=== PATIENT | female | born 1995 | race Native Hawaiian/Other Pacific Islander ===

== ENCOUNTER 2018-10-17 22:00 | Emergency (ER) | payer BC ==
[2018-10-17] MEDS ORDERED: SODIUM CHLORIDE 0.9% 1,000 ML IV STA (22:42)
[2018-10-17] MEDS ORDERED: ONDANSETRON 4 MG/2 ML VIAL IVP STA (22:42)
[2018-10-17 22:44] LABS: Hyaline Casts,Urine 6 /lpf (0-2); Ketones,Urine 2+ (Negative)
--- NOTE | 2018-10-17 23:09 | ED ---
General Adult HPI - General Source: patient, RN notes reviewed, old records reviewed Mode of arrival: ambulatory Limitations: no limitations <Gabriel Anderson - Last Filed: 10/18/18 00:12> <Mikki Gomez - Last Filed: 10/20/18 01:55> - General Chief complaint: Nausea/Vomiting/Diarrhea Stated complaint: NVD - History of Present Illness Initial comments: 23-year-old female patient with no pertinent past medical history presents to ED with approximately 4 hours of nausea vomiting diarrhea. Patient denies feeling ill prior to that, recent coughs or congestions. Patient states that she approximately 6-8 episodes of wretching/emesis. Patient additionally states that she has approximately 6-8 episodes of non bloody diarrhea. Patient reports she had some abdominal cramping but denies any abdominal pain. Patient denies any other complaints. Systemic: Pt denies fatigue, myalgia, fever/chills, rash. Pt denies weakness, night sweats, weight loss. Neuro: Pt denies headache, visual disturbances, syncope or pre-syncope. HEENT: Pt denies ocular discharge or irritation, otalgia, rhinorrhea, pharyngitis or notable lymphadenopathy. Cardiopulmonary: Pt denies chest pain, SOB, heart palpitations, dyspnea on exertion. : Pt denies dysuria, burning w/ urination, frequency/urgency. Denies new onset urinary or bowel incontinence. MSK: Pt denies myalgia, loss of strength or function in extremities. Neuro: Pt denies new onset weakness, paresthesias. (Gabriel Anderson) - Related Data Home Medications Medication Instructions Recorded Confirmed Ibuprofen [Motrin Ib] 400 mg PO Q6HR PRN 10/17/18 10/17/18 Previous Rx's Medication Instructions Recorded Ondansetron Odt [Zofran ODT] 4 mg PO Q8HR PRN #20 tab 10/17/18 Allergies Allergy/AdvReac Type Severity Reaction Status Date / Time No Known Allergies Allergy Verified 10/17/18 22:22 Review of Systems ROS Other: All systems not noted in ROS Statement are negative. <Gabriel Anderson - Last Filed: 10/18/18 00:12> ROS Other: All systems not noted in ROS Statement are negative. <Mikki Gomez - Last Filed: 10/20/18 01:55> ROS Statement: Those systems with pertinent positive or pertinent negative responses have been documented in the HPI. Past Medical History Past Medical History: No Reported History History of Any Multi-Drug Resistant Organisms: None Reported Past Surgical History: Orthopedic Surgery Past Psychological History: No Psychological Hx Reported Smoking Status: Current every day smoker Past Alcohol Use History: Occasional Past Drug Use History: None Reported <Gabriel Anderson - Last Filed: 10/18/18 00:12> General Exam Limitations: no limitations <Gabriel Anderson - Last Filed: 10/18/18 00:12> <Mikki Gomez - Last Filed: 10/20/18 01:55> - General Exam Comments Initial Comments: Constitutional: NAD, AOX3, Pt has pleasant affect. HEENT: NC/AT, trachea midline, neck supple, no lymphadenopathy. Posterior pharynx non erythematous, without exudates. External ears appear normal, without discharge. Mucous membranes moist. Eyes PERRLA, EOM intact. There is no scleral icterus. No pallor noted. Cardiopulmonary: RRR, no murmurs, rubs or gallops, no JVD noted. Lungs CTAB in anterior and posterior day. No peripheral edema. HR 90 on repeat examination. Abdominal exam: Abdomen soft and non-distended. Abdomen non-tender to palpation in all 4 quadrants. No guarding no rigidity. Bowel sounds active in LLQ. No hepatosplenomegaly. No ecchymosis Neuro: CN II-XII grossly intact. No nuchal rigidity. MSK: No posterior calf tenderness bilaterally, homans sign negative bilaterally. Posterior tibialis and radial pulse +2 bilaterally. Sensation intact in upper and lower extremities. Full active ROM in upper and lower extremities, 5/5 stregnth. (Gabriel Anderson) Vital Signs 10/17/18 10/17/18 10/18/18 22:08 22:30 00:07 Temperature 98.3 F 98.1 F Pulse Rate 121 H 109 H 97 Respiratory 18 16 Rate Blood Pressure 110/72 118/72 O2 Sat by Pulse 98 98 Oximetry Medical Decision Making <Gabriel Anderson - Last Filed: 10/18/18 00:12> <Mikki Gomez - Last Filed: 10/20/18 01:55> - Medical Decision Making 23-year-old female patient with no pertinent past medical history presents to ED with approximately 4 hours of nausea vomiting diarrhea. Patient denies feeling ill prior to that, recent coughs or congestions. Patient states that she approximately 6-8 episodes of wretching/emesis. Patient additionally states that she has approximately 6-8 episodes of non bloody diarrhea. Patient reports she had some abdominal cramping but denies any abdominal pain. Patient denies any other complaints. Patient initially tachycardic on presentation, heart rate normalized after fluid administration. Physical exam did not display acute pathology. Patient improved with 1 L normal saline, Zofran. UA was not impressive, hCG negative. Influenza swabs negative. Patient diagnosed with viral gastroenteritis. Patient to be prescribed Zofran starter pack, and prescription for Zofran. Patient educated on viral gastroenteritis, self- limiting process. Patient educated on Brat diet. Patient to follow up with primary care provider tomorrow. Pt to return to ED if new s/sx develop or if condition worsens in anyway. Case discussed with Dr. Gomez. (Gabriel Anderson) I was available for consultation in the emergency department. The history and physical exam were done by the midlevel provider. I was consulted for this patient's care. I reviewed the case with the midlevel provider and based on their presentation of the patient, I agree with the assessment, medical decision making and plan of care as documented. (Mikki Gomez) - Lab Data Lab Results 10/17/18 10/17/18 10/17/18 Range/Units 22:30 22:30 22:32 Urine Color Yellow Urine Appearance Cloudy H (Clear) Urine pH 5.5 (5.0-8.0) Ur Specific [place] 1.022 (1.001-1.035) Urine Protein 1+ H (Negative) Urine Glucose (UA) Negative (Negative) Urine Ketones 2+ H (Negative) Urine Blood Negative (Negative) Urine Nitrite Negative (Negative) Urine Bilirubin Negative (Negative) Urine Urobilinogen <2.0 (<2.0) mg/dL Ur Leukocyte Esterase Trace H (Negative) Urine WBC 5 (0-5) /hpf Ur Squamous Epith Cells 11 H (0-4) /hpf Hyaline Casts 6 H (0-2) /lpf Urine Mucus Many H (None) /hpf Urine HCG, Qual Not Detected (Not Detectd) Influenza Type A RNA Not Detected (Not Detectd) Influenza Type B (PCR) Not Detected (Not Detectd) Disposition Is patient prescribed a controlled substance at d/c from ED?: No Time of Disposition: 23:44 <Gabriel Anderson - Last Filed: 10/18/18 00:12> <Mikki Gmoez - Last Filed: 10/20/18 01:55> Clinical Impression: Viral gastroenteritis Disposition: HOME SELF-CARE Condition: Good Instructions: Gastroenteritis (ED), Acute Nausea and Vomiting (ED) Additional Instructions: Patient to adhere to previously discussed treatment plan and will take medication(s) as directed. Patient to follow up with PCP in 1-2 days. Patient to return to ED if symptoms do not improve. Prescriptions: Ondansetron Odt [Zofran ODT] 4 mg PO Q8HR PRN #20 tab PRN Reason: Nausea Referrals: None,Stated [Primary Care Provider] - 1-2 days
[2018-10-17 23:21] LABS: Appearance,Urine Cloudy (Clear); Bilirubin,Urine Negative (Negative); Blood,Urine Negative (Negative); Color,Urine Yellow; Glucose,Urine (UA) Negative (Negative); Leukocyte Esterase,Urine Trace (Negative); Mucus,Urine Many /hpf; Nitrite,Urine Negative (Negative); PH, Urine 5.5 (5.0-8.0); Protein,Urine 1+ (Negative); Specific Gravity,Urine 1.022 (1.001-1.035); Squamous Epithelial Cell,Urine 11 /hpf (0-4); Urobilinogen,Urine <2.0 mg/dL (<2.0); WBC,Urine 5 /hpf (0-5)
[2018-10-17] MEDS ORDERED: ONDANSETRON 4 MG ODT STARTER PACK 2 TAB BTL PO STA (23:42)
[2018-10-18 00:08] VITALS: BP 118/72; PULSE 97; RESP 16; TEMP 98.1
== END 2018-10-18 00:14 | disposition home or self-care (01) ==
LOC: EC 22:00
DX: A08.4 Viral intestinal infection, unspecified (principal); F17.200 Nicotine dependence, unspecified, uncomplicated
CPT/HCPCS: 81001; 81025; 87502; 99284; 96374; 96361; J2405; S0119

== ENCOUNTER 2019-04-15 12:22 | Emergency (ER) | payer BC ==
[2019-04-15] MEDS ORDERED: TOBRAMYCIN 0.3% OPHTH DROPS 5 ML BTL BOTH EYES STA (13:32)
[2019-04-15 14:12] LABS: Appearance,Urine Clear (Clear); Bilirubin,Urine Negative (Negative); Blood,Urine Negative (Negative); Color,Urine Yellow; Glucose,Urine (UA) Negative (Negative); Ketones,Urine Trace (Negative); Leukocyte Esterase,Urine Negative (Negative); Nitrite,Urine Negative (Negative); PH, Urine 6.5 (5.0-8.0); Protein,Urine Negative (Negative); Specific Gravity,Urine 1.023 (1.001-1.035); Urobilinogen,Urine <2.0 mg/dL (<2.0)
--- NOTE | 2019-04-15 14:40 | ED ---
Abdominal Pain HPI - General Chief Complaint: Abdominal Pain Stated Complaint: abdominal pain/congestion Time Seen by Provider: 04/15/19 13:04 Source: patient, RN notes reviewed, old records reviewed Mode of arrival: ambulatory Limitations: no limitations - History of Present Illness Initial Comments: 21-year-old female presents return to bilateral tired Patient, lower abdominal pain, cough and sore throat. She has a multiple symptoms. Her main complaint is concerned for eye irritation. 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 She states that she will comply eyes crusted over shot. - Related Data Previous Rx's Medication Instructions Recorded Tobramycin 0.3% Ophth Soln [Tobrex 1 drop BOTH EYES Q4H #1 bottle 04/15/19 0.3% Ophth Soln] Allergies Allergy/AdvReac Type Severity Reaction Status Date / Time No Known Allergies Allergy Verified 04/15/19 13:05 Review of Systems ROS Statement: Those systems with pertinent positive or pertinent negative responses have been documented in the HPI. ROS Other: All systems not noted in ROS Statement are negative. Past Medical History Past Medical History: No Reported History History of Any Multi-Drug Resistant Organisms: None Reported Past Surgical History: Orthopedic Surgery Past Psychological History: No Psychological Hx Reported Smoking Status: Current every day smoker Past Alcohol Use History: Occasional Past Drug Use History: None Reported, Marijuana General Exam - General Exam Comments Initial Comments: well appearing female, no distress. Limitations: no limitations General appearance: alert, in no apparent distress Head exam: Present: atraumatic, normocephalic, normal inspection Eye exam: Present: normal appearance, PERRL, EOMI, conjunctival injection (bilateral cinffection. ). Absent: scleral icterus, periorbital swelling ENT exam: Present: normal exam, mucous membranes moist Neck exam: Present: normal inspection. Absent: tenderness, meningismus, lymphadenopathy Respiratory exam: Present: normal lung sounds bilaterally. Absent: respiratory distress, wheezes, rales, rhonchi, stridor Cardiovascular Exam: Present: regular rate, normal rhythm, normal heart sounds. Absent: systolic murmur, diastolic murmur, rubs, gallop, clicks GI/Abdominal exam: Present: soft, normal bowel sounds. Absent: distended, tenderness, guarding, rebound, rigid Extremities exam: Present: normal inspection, full ROM, normal capillary refill. Absent: tenderness, pedal edema, joint swelling, calf tenderness Back exam: Present: normal inspection Neurological exam: Present: alert, oriented X3, CN II-XII intact Psychiatric exam: Present: normal affect, normal mood Course Vital Signs 04/15/19 04/15/19 12:35 15:09 Temperature 98 F 98.1 F Pulse Rate 81 71 Respiratory 18 16 Rate Blood Pressure 127/78 128/72 O2 Sat by Pulse 97 98 Oximetry Medical Decision Making - Medical Decision Making 23 year old female for multiple complaints, Patient main concern is returning to work after evaulation for conjunctivitis. Patient has bilateral conjurnctival injection. Patient also has cramping but is in middle of menstrual cycle and discussed she has no abdominal tenderness. Discussed she has had minor sore throat and cough, congestion as well. Discussed likely viral conjunctivitis and related to her symptoms of sore throat and congestion. CXR is normal. Patient states she cannot return to work without note. Discussed will write for tobramycin and if symptoms persist for 2 more days to start. Patient adcised PCP follow up. - Lab Data Lab Results 04/15/19 04/15/19 Range/Units 13:30 13:30 Urine Color Yellow Urine Appearance Clear (Clear) Urine pH 6.5 (5.0-8.0) Ur Specific [place] 1.023 (1.001-1.035) Urine Protein Negative (Negative) Urine Glucose (UA) Negative (Negative) Urine Ketones Trace H (Negative) Urine Blood Negative (Negative) Urine Nitrite Negative (Negative) Urine Bilirubin Negative (Negative) Urine Urobilinogen <2.0 (<2.0) mg/dL Ur Leukocyte Esterase Negative (Negative) Urine HCG, Qual Not Detected (Not Detectd) - Radiology Data Radiology results: report reviewed Interpreted by me: Normal CXR. Disposition Clinical Impression: Conjunctivitis, Viral syndrome, Pelvic cramping Disposition: HOME SELF-CARE Condition: Good Instructions (If sedation given, give patient instructions): Conjunctivitis (ED) Additional Instructions: Patient can apply the eyedrops eye every few hours. Take Motrin Tylenol for pain. Patient should've close follow-up with primary care physician. Return to the emergency department if any alarming signs or symptoms occur. Prescriptions: Tobramycin 0.3% Ophth Soln [Tobrex 0.3% Ophth Soln] 1 drop BOTH EYES Q4H #1 bottle Is patient prescribed a controlled substance at d/c from ED?: No Referrals: None,Stated [Primary Care Provider] - 1-2 days Bella Stark MD [STAFF PHYSICIAN] - 1-2 days Time of Disposition: 14:59
--- NOTE | 2019-04-15 14:44 | XR ---
EXAMINATION TYPE: XR chest 2V DATE OF EXAM: 04/15/2019 COMPARISON: Prior chest x-ray 11/10/2000 HISTORY: Right-sided pain, cough TECHNIQUE: Frontal and lateral views of the chest are obtained. FINDINGS: There is no focal air space opacity, pleural effusion, or pneumothorax seen. The cardiac silhouette size is within normal limits. The osseous structures are intact. IMPRESSION: No acute cardiopulmonary process.
[2019-04-15 15:10] VITALS: BP 128/72; PULSE 71; RESP 16; TEMP 98.1
== END 2019-04-15 15:11 | disposition home or self-care (01) ==
LOC: EC 12:22
DX: H10.9 Unspecified conjunctivitis (principal); B34.9 Viral infection, unspecified; N94.6 Dysmenorrhea, unspecified; F17.200 Nicotine dependence, unspecified, uncomplicated
CPT/HCPCS: 71046; 81003; 81025; 99284